=== PATIENT | male | born 2000 | race Caucasian/White ===

== ENCOUNTER 2022-07-16 17:58 | Emergency (ER) | payer OTHER, SELFPAY ==
[2022-07-16 18:02] VITALS: BP 123/76; PULSE 66; RESP 18; TEMP 37; O2SAT 98; BMI 30.5
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
[2022-07-16 19:13] VITALS: PULSE 62; O2SAT 99
[2022-07-16 19:14] VITALS: BP 130/86; PULSE 57; O2SAT 98
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
== END 2022-07-16 19:38 | disposition home or self-care (01) ==
PROVIDERS: Emergency Provider Physician Assistant Medical
DX: M25.511 Pain in right shoulder (principal); V29.99XA Rider (driver) (passenger) of other motorcycle injured in unspecified traffic accident, initial encounter
CPT/HCPCS: 73030; 99281; 99283